=== PATIENT | female | born 1950 | race Caucasian/White ===

== ENCOUNTER → 2019-03-08 | Outpatient (CLI) | payer BC, MEDICARE ==
[~2019-03-08] MED LIST: LIDOCAINE HCL 2% JELLY 5 ML ONE; LIDOCAINE/PRILOCAINE CREAM 5GM TUBE TP ONE
[2019-03-08 12:54] VITALS: BP 149/73
== END | disposition home or self-care (01) ==
LOC: WHH 10:30
PROVIDERS: ATTEND Family Medicine
DX: I83.023 Varicose veins of left lower extremity with ulcer of ankle (principal); E78.5 Hyperlipidemia, unspecified; L40.0 Psoriasis vulgaris; K21.9 Gastro-esophageal reflux disease without esophagitis; G58.8 Other specified mononeuropathies; Z87.891 Personal history of nicotine dependence; Z85.3 Personal history of malignant neoplasm of breast
CPT/HCPCS: 11042; A6022; A6196; J3490; 97597

== ENCOUNTER → 2019-03-22 | Outpatient (CLI) | payer MEDICARE ==
[~2019-03-22] MED LIST changes: -LIDOCAINE HCL 2% JELLY 5 ML ONE
[2019-03-22 11:25] VITALS: BP 136/80
== END | disposition home or self-care (01) ==
LOC: WHH 09:05
PROVIDERS: ATTEND Family Medicine
DX: I83.023 Varicose veins of left lower extremity with ulcer of ankle (principal); L97.321 Non-pressure chronic ulcer of left ankle limited to breakdown of skin; E78.5 Hyperlipidemia, unspecified; L40.0 Psoriasis vulgaris; K21.9 Gastro-esophageal reflux disease without esophagitis; G58.8 Other specified mononeuropathies; Z87.891 Personal history of nicotine dependence; Z85.3 Personal history of malignant neoplasm of breast
CPT/HCPCS: A6212; G0463; J3490

== ENCOUNTER → 2019-04-05 | Outpatient (CLI) | payer MEDICARE ==
[2019-04-05 11:30] VITALS: BP 178/86
== END | disposition home or self-care (01) ==
LOC: WHH 10:15
PROVIDERS: ATTEND Emergency Medicine
DX: I83.023 Varicose veins of left lower extremity with ulcer of ankle (principal); I70.243 Atherosclerosis of native arteries of left leg with ulceration of ankle; L97.321 Non-pressure chronic ulcer of left ankle limited to breakdown of skin; E78.5 Hyperlipidemia, unspecified; L40.0 Psoriasis vulgaris; K21.9 Gastro-esophageal reflux disease without esophagitis; G58.8 Other specified mononeuropathies; Z87.891 Personal history of nicotine dependence; Z85.3 Personal history of malignant neoplasm of breast
CPT/HCPCS: A6196; G0463

== ENCOUNTER → 2019-04-13 | Outpatient (CLI) | payer MEDICARE ==
[2019-04-13 13:10] VITALS: BP 161/78
== END | disposition home or self-care (01) ==
LOC: WHH 11:00
PROVIDERS: ATTEND Emergency Medicine
DX: I83.023 Varicose veins of left lower extremity with ulcer of ankle (principal); I70.243 Atherosclerosis of native arteries of left leg with ulceration of ankle; L97.321 Non-pressure chronic ulcer of left ankle limited to breakdown of skin; E78.5 Hyperlipidemia, unspecified; L40.0 Psoriasis vulgaris; K21.9 Gastro-esophageal reflux disease without esophagitis; G58.8 Other specified mononeuropathies; Z87.891 Personal history of nicotine dependence; Z85.3 Personal history of malignant neoplasm of breast
CPT/HCPCS: A6212; G0463; J3490

== ENCOUNTER → 2019-04-19 | Outpatient (CLI) | payer MEDICARE ==
[2019-04-19 14:21] VITALS: BP 175/86
== END | disposition home or self-care (01) ==
LOC: WHH 11:00
PROVIDERS: ATTEND Family Medicine
DX: I83.023 Varicose veins of left lower extremity with ulcer of ankle (principal); I70.243 Atherosclerosis of native arteries of left leg with ulceration of ankle; L97.321 Non-pressure chronic ulcer of left ankle limited to breakdown of skin; E78.5 Hyperlipidemia, unspecified; L40.0 Psoriasis vulgaris; K21.9 Gastro-esophageal reflux disease without esophagitis; G58.8 Other specified mononeuropathies; Z87.891 Personal history of nicotine dependence; Z85.3 Personal history of malignant neoplasm of breast
CPT/HCPCS: G0463

== ENCOUNTER → 2019-06-04 | Outpatient (CLI) | payer MEDICARE, OTHER ==
[2019-06-04 14:28] VITALS: BP 178/76
== END | disposition home or self-care (01) ==
LOC: WHH 09:45
PROVIDERS: ATTEND Family Medicine
DX: L30.9 Dermatitis, unspecified (principal); I83.92 Asymptomatic varicose veins of left lower extremity; E78.5 Hyperlipidemia, unspecified; K21.9 Gastro-esophageal reflux disease without esophagitis; G58.8 Other specified mononeuropathies; L40.0 Psoriasis vulgaris; Z87.891 Personal history of nicotine dependence; Z85.3 Personal history of malignant neoplasm of breast
CPT/HCPCS: G0463; J3490

== ENCOUNTER → 2019-06-14 | Outpatient (CLI) | payer MEDICARE, OTHER ==
[2019-06-14 12:05] VITALS: BP 135/85
== END | disposition home or self-care (01) ==
LOC: WHH 10:25
PROVIDERS: ATTEND Family Medicine
DX: L30.9 Dermatitis, unspecified (principal); I83.92 Asymptomatic varicose veins of left lower extremity; K21.9 Gastro-esophageal reflux disease without esophagitis; E78.5 Hyperlipidemia, unspecified; L40.0 Psoriasis vulgaris; G58.8 Other specified mononeuropathies; Z85.3 Personal history of malignant neoplasm of breast; Z87.891 Personal history of nicotine dependence
CPT/HCPCS: G0463

== ENCOUNTER → 2019-06-25 | Outpatient (CLI) | payer MEDICARE, OTHER ==
[2019-06-25 13:30] VITALS: BP 170/54
== END | disposition home or self-care (01) ==
LOC: WHH 10:20
PROVIDERS: ATTEND Family Medicine
DX: L30.9 Dermatitis, unspecified (principal); I83.92 Asymptomatic varicose veins of left lower extremity; K21.9 Gastro-esophageal reflux disease without esophagitis; E78.5 Hyperlipidemia, unspecified; L40.0 Psoriasis vulgaris; G58.8 Other specified mononeuropathies; Z85.3 Personal history of malignant neoplasm of breast; Z87.891 Personal history of nicotine dependence
CPT/HCPCS: G0463

== ENCOUNTER → 2019-07-09 | Outpatient (CLI) | payer MEDICARE, OTHER ==
[~2019-07-09] MED LIST changes: +LIDOCAINE HCL 2% JELLY 5 ML ONE; -LIDOCAINE/PRILOCAINE CREAM 5GM TUBE TP ONE
[2019-07-09 12:06] VITALS: BP 183/91
== END | disposition home or self-care (01) ==
LOC: WHH 10:30
PROVIDERS: ATTEND Family Medicine
DX: L97.821 Non-pressure chronic ulcer of other part of left lower leg limited to breakdown of skin (principal); L30.9 Dermatitis, unspecified; I83.92 Asymptomatic varicose veins of left lower extremity; I73.9 Peripheral vascular disease, unspecified; K21.9 Gastro-esophageal reflux disease without esophagitis; E78.5 Hyperlipidemia, unspecified; G58.8 Other specified mononeuropathies; Z85.3 Personal history of malignant neoplasm of breast; Z87.891 Personal history of nicotine dependence
CPT/HCPCS: 97597; A6197

== ENCOUNTER → 2019-07-19 | Outpatient (CLI) | payer MEDICARE, OTHER ==
[~2019-07-19] MED LIST changes: -LIDOCAINE HCL 2% JELLY 5 ML ONE; +LIDOCAINE/PRILOCAINE CREAM 5GM TUBE TP ONE
[2019-07-19 14:31] VITALS: BP 172/82
== END | disposition home or self-care (01) ==
LOC: WHH 10:50
PROVIDERS: ATTEND Family Medicine
DX: I83.023 Varicose veins of left lower extremity with ulcer of ankle (principal); L97.321 Non-pressure chronic ulcer of left ankle limited to breakdown of skin; E78.5 Hyperlipidemia, unspecified; I87.2 Venous insufficiency (chronic) (peripheral); I73.9 Peripheral vascular disease, unspecified; K21.9 Gastro-esophageal reflux disease without esophagitis; L40.0 Psoriasis vulgaris; Z85.3 Personal history of malignant neoplasm of breast; Z87.891 Personal history of nicotine dependence
CPT/HCPCS: A6196; G0463; J3490

== ENCOUNTER → 2019-08-13 | Outpatient (CLI) | payer MEDICARE, OTHER ==
[2019-08-13 12:47] VITALS: BP 169/97
== END | disposition home or self-care (01) ==
LOC: WHH 10:00
PROVIDERS: ATTEND Family Medicine
DX: I83.023 Varicose veins of left lower extremity with ulcer of ankle (principal); L97.321 Non-pressure chronic ulcer of left ankle limited to breakdown of skin; L30.9 Dermatitis, unspecified; I73.9 Peripheral vascular disease, unspecified; I87.2 Venous insufficiency (chronic) (peripheral); L40.0 Psoriasis vulgaris; K21.9 Gastro-esophageal reflux disease without esophagitis; E78.5 Hyperlipidemia, unspecified; G58.8 Other specified mononeuropathies; Z87.891 Personal history of nicotine dependence; Z85.3 Personal history of malignant neoplasm of breast
CPT/HCPCS: A6197; G0463

== ENCOUNTER → 2019-08-27 | Outpatient (CLI) | payer MEDICARE, OTHER ==
[2019-08-27 12:55] VITALS: BP 176/82
== END | disposition home or self-care (01) ==
LOC: WHH 09:30
PROVIDERS: ATTEND Family Medicine
DX: I83.023 Varicose veins of left lower extremity with ulcer of ankle (principal); L97.321 Non-pressure chronic ulcer of left ankle limited to breakdown of skin; L30.9 Dermatitis, unspecified; L40.0 Psoriasis vulgaris; K21.9 Gastro-esophageal reflux disease without esophagitis; I87.2 Venous insufficiency (chronic) (peripheral); I73.9 Peripheral vascular disease, unspecified; E78.5 Hyperlipidemia, unspecified; G58.8 Other specified mononeuropathies; Z85.3 Personal history of malignant neoplasm of breast; Z87.891 Personal history of nicotine dependence
CPT/HCPCS: A6197; G0463

== ENCOUNTER 2019-09-17 10:00 | Outpatient (CLI) | payer MEDICARE, OTHER ==
[2019-09-17 14:03] VITALS: BP 121/64
== END 2019-09-17 14:24 ==
LOC: WHH 10:00
PROVIDERS: ATTEND Family Medicine
DX: I83.023 Varicose veins of left lower extremity with ulcer of ankle (principal); L97.321 Non-pressure chronic ulcer of left ankle limited to breakdown of skin; L30.9 Dermatitis, unspecified; I73.9 Peripheral vascular disease, unspecified; I87.2 Venous insufficiency (chronic) (peripheral); K21.9 Gastro-esophageal reflux disease without esophagitis; E78.5 Hyperlipidemia, unspecified; G58.8 Other specified mononeuropathies; L40.0 Psoriasis vulgaris; Z85.3 Personal history of malignant neoplasm of breast; Z87.891 Personal history of nicotine dependence
CPT/HCPCS: A6197 ×2; G0463

== ENCOUNTER → 2023-03-29 | Outpatient (CLI) | payer OTHER | END | disposition home or self-care (01) | LOC: SHCH 11:12 | PROVIDERS: ATTEND Internal Medicine Cardiovascular Disease | DX: I87.2 Venous insufficiency (chronic) (peripheral) (principal); Z95.820 Peripheral vascular angioplasty status with implants and grafts | CPT/HCPCS: 93970 ==

== ENCOUNTER → 2023-06-05 | Outpatient (CLI) | payer OTHER | END | disposition home or self-care (01) | LOC: SHCH 08:48 | PROVIDERS: ATTEND Internal Medicine | DX: R06.02 Shortness of breath (principal); I10 Essential (primary) hypertension; E78.5 Hyperlipidemia, unspecified | CPT/HCPCS: 93306 ==

== ENCOUNTER → 2023-07-08 | Outpatient (CLI) | payer OTHER ==
[2023-07-08] MEDS: REGADENOSON 0.4 MG/5 ML PF SYG IVP ONE (16:20)
== END | disposition home or self-care (01) ==
LOC: SHCH 09:03
PROVIDERS: ATTEND Internal Medicine
DX: I45.10 Unspecified right bundle-branch block (principal); R07.9 Chest pain, unspecified
CPT/HCPCS: 78452; 96374; 93017; J2785; A9500 ×2

== ENCOUNTER → 2024-03-25 | Outpatient (CLI) | payer OTHER ==
[~2024-03-25] MED LIST changes: +DIATR MEGLU/DIATRIZOATE SODIUM 30 ML BOTTLE ONE; -LIDOCAINE/PRILOCAINE CREAM 5GM TUBE TP ONE
--- NOTE | 2024-03-25 14:40 | HMCIMG ---
CT ABDOMEN/PELVIS W/O CONTRAST REASON: PARTIAL INTESTINAL OBSTRUCTION COMPARISON: None. TECHNIQUE: Images are obtained from lung bases to symphysis. There is some residual barium present within the colon. FINDINGS: Lung bases are clear. There are no focal liver lesions. There are normal-appearing kidneys.. Spleen and pancreas appear unremarkable. There are multiple stones in an otherwise normal-appearing gallbladder. Contrast outlines normal appearance of the colon. There is a redundant sigmoid colon, a normal variation. Probable ileum appears unremarkable. The appendix was not separately identified. Small bowel loops appear unremarkable.. This includes normal appearance of the appendix There is no evidence of free fluid or intraperitoneal air. There are no focal fluid collections. There are mild atherosclerotic changes in the aorta without evidence of aneurysm or stenosis. There is no retroperitoneal or pelvic lymphadenopathy. Pelvic soft tissues appear unremarkable.. The anterior abdominal wall is intact. Osseous structures appear unremarkable. IMPRESSION: 1. Redundant sigmoid colon, a normal variation, the colon appears otherwise unremarkable without evidence of mass or obstruction 2. Mild atherosclerotic change in the aorta. 3. Cholelithiasis without evidence of acute cholecystitis. CT was performed with one or more following dose reduction techniques: automated exposure control, adjustment of the mA and kv according to patient's size, or use of a iterative reconstruction technique.
== END | disposition home or self-care (01) ==
LOC: RAH 12:47
PROVIDERS: ATTEND Surgery
DX: K80.20 Calculus of gallbladder without cholecystitis without obstruction (principal); K56.600 Partial intestinal obstruction, unspecified as to cause; I70.0 Atherosclerosis of aorta; Q43.8 Other specified congenital malformations of intestine
CPT/HCPCS: 74176; Q9963

== ENCOUNTER 2024-07-15 06:17 | Day surgery (SDC) | payer OTHER ==
--- NOTE | 2024-07-13 15:35 | EKG ---
[facility] Test Date: 2024-07-13 Test Time: 16:33:51 Pat Name: MARS ESTEBAN Department: [facility] Room: Gender: F Director Of Elementary Education: [id number] : 1950 Requested By: TANIKA PETIT Order Number: [id number] Reading MD: Ambrosio Bethea Measurements Intervals [place] Rate: 68 P: 54 VT: 214 QRS: 37 QRSD: 150 T: 45 QT: 440 QTc: 467 Interpretive Statements Sinus rhythm with 1st degree AV block Right bundle branch block No previous ECG available for comparison Electronically Signed On 07-14-2024 12:49:34 VICE PRESIDENT INVESTOR RELATIONS by Ambrosio Bethea Please click the below link to view image of tracing.
[2024-07-13 15:44] VITALS: BP 151/64; PULSE 72; RESP 16; TEMP 96.9
[2024-07-13 15:45] LABS: BASOPHILS # (AUTO) 0.05 K/uL (0.00-0.20); BASOPHILS % (AUTO) 0.8 % (0.0-5.0); EOSINOPHILS # (AUTO) 0.24 K/uL (0.00-0.70); EOSINOPHILS % (AUTO) 3.6 % (0.0-8.0); HEMATOCRIT 37.7 % (36-48); IMMATURE GRANULOCYTE ABSOLUTE 0.02 K/uL (0-1); LYMPHOCYTES # (AUTO) 2.6 K/uL (1.0-4.8); LYMPHOCYTES % (AUTO) 38.6 % (21.0-51.0); MEAN CORPUSCULAR HGB CONC 32.9 g/dL (32.0-36.0); MEAN CORPUSCULAR VOLUME 88.3 fL (79-99); MONOCYTES # (AUTO) 0.6 K/uL (0.1-1.0); MONOCYTES % (AUTO) 9.6 % (3.0-13.0); NEUTROPHILS # (AUTO) 3.1 K/uL (1.8-7.7); NEUTROPHILS % (AUTO) 47.1 % (40.0-77.0); PLATELET COUNT (AUTO) 273 K/uL (130-400); RED BLOOD CELL COUNT(AUTO) 4.27 MIL/uL (4.00-5.50); RED CELL DISTRIBUTION WIDTH 12.4 % (11.0-15.5); WHITE BLOOD COUNT (AUTO) 6.6 K/uL (4.8-10.8)
[2024-07-13 15:56] LABS: CREATININE 0.7 mg/dL (0.5-1.0); POTASSIUM 4.4 mmol/L (3.5-5.1)
[~2024-07-15] VITALS: Ht 175.3 cm; Wt 85.5 kg
[2024-07-15] VITALS (14 sets, daily range): BP systolic 111–138; BP diastolic 41–69; PULSE 72–88; RESP 13–18; TEMP 97.1–98.2
[~2024-07-15 06:17] MED LIST changes: +AEC81 PO; +AMLO-258 PO; -DIATR MEGLU/DIATRIZOATE SODIUM 30 ML BOTTLE ONE; +DONE10TA43 PO; +EZET10TA48 PO; +LEVO5TAB13 PO; +LOSA100T59 PO; +PREG50CA64 PO; +ceFAZolin SODIUM 2 GM VIAL ONE
[2024-07-15] MEDS: LACTATED RINGERS 1000ML 1,000 ML IV ONE (06:30)
[2024-07-15] MEDS ORDERED: acetaMINOPHEN 100 ML ONE (06:56)
[2024-07-15] MEDS ORDERED: FAMOTIDINE 20MG VIAL IV ONE (06:57)
[2024-07-15] MEDS ORDERED: ketaMINE 50MG/ML SYRINGE 50 MG/ML DISP.SYRIN ONE (07:03)
[2024-07-15] MEDS ORDERED: FENTanyl CITRate PF 50 MCG/1 ML 2ML VIAL ONE (07:08)
[2024-07-15] MEDS ORDERED: rocuRONium bROMide 10MG/1ML 5ML VL ONE ×2 (07:08→09:16)
[2024-07-15] MEDS ORDERED: proPOFol 10 MG/ML 20ML VIAL IV ONE (07:08)
[2024-07-15] MEDS ORDERED: LIDOCAINE PF 100MG/5ML (2%) SYRINGE 5ML ONE (07:08)
[2024-07-15] MEDS ORDERED: BUPIvacaine/PF 0.25% 30ML VIAL IJ ONE (07:10)
[2024-07-15] MEDS ORDERED: INDOCYANINE GREEN 25 MG VIAL IJ ONE (07:34)
[2024-07-15] MEDS: ceFAZolin SODIUM 2 GM VIAL IVPB ONE (08:39)
[2024-07-15] MEDS ORDERED: dexaMETHasone SOD PHOSPHATE 10MG/ML 1ML VIAL ONE (08:40)
[2024-07-15] MEDS ORDERED: ondanSETRON 4MG INJ ONE (08:41)
[2024-07-15] MEDS ORDERED: GLYCOPYRROLATE 0.2 MG/ML 5 ML VIAL ONE (08:46)
[2024-07-15] MEDS ORDERED: NEOSTIGMINE METHYLSULFATE 1MG/ML IV ONE (08:46)
[2024-07-15] MEDS: BUPIvacaine/PF 0.25% 30ML VIAL IJ ONE (08:50)
--- NOTE | 2024-07-15 10:00 | OP ---
Operative Note: DATE OF PROCEDURE: 07/15/24 SURGEON: TANIKA PETIT MD AWNING HANGER HELPER: Tom Petit MD p.a. C ANESTHESIA: General and local ANESTHESIOLOGIST/COAT OPERATOR INSULATOR: [facility] anesthesia team PREOPERATIVE DIAGNOSIS: Symptomatic cholelithiasis POSTOPERATIVE DIAGNOSIS: As above SYNOPSIS: Cholecystectomy performed without incident PROCEDURE: 1. Robotic assisted cholecystectomy with IC green cholangiogram ESTIMATED BLOOD LOSS: Minimal, less than 30 cc INDICATIONS: As above DESCRIPTION OF PROCEDURE: After standard precautions and preparations were undertaken a Veress needle and optical trocar were used to enter the abdominal cavity. All other instruments were placed under direct vision. The robotic system was docked in the standard fashion. Patient's gallbladder was enlarged and had signs of chronic inflammation that included peritoneal and fatty attachments to surrounding structures. These attachments were dissected free using monopolar cautery and blunt dissection. The gallbladder was retracted cephalad. We began dissecting in the area of the infundibulum but found this difficult due to the size and orientation of the gallbladder. A partial dome down approach was then taken to free up and mobilize the gallbladder. Once this was completed sufficiently we are able to continue to retract the gallbladder cephalad and continue our work around the infundibulum. We identified a critical view of safety with a single duct and a single artery. The visualization of the ductal system was enhanced by the IC green cholangiogram. Utilizing firefly visual technology with the robotic system and IC green injection into the patient we are able to eliminate the entire ductal system with no signs of filling defects from the cystic duct to the common bile and common hepatic ducts. Clips were placed on both structures two on the staying side one on the going side. Both cystic duct and cystic artery were divided. Monopolar cautery was used to separate the remainder of attachments between the gallbladder and gallbladder fossa. The specimen was placed in an Endo-Catch bag and removed from the abdominal cavity. At the end of the case the clips were verified to still be in place. There was no sign of any bile leakage or bleeding. The fascia at the extraction site was closed to prevent future hernia. TANIKA PETIT MD Jul 15, 2024 10:00
--- NOTE | 2024-07-15 10:00 | PN ---
GENERAL SURGERY PROGRESS NOTE Date/Time Patient Seen: [07/15/2024 at 10:15 a.m. ] Problem List: [ ] Interval History: [Postop day 0. Pain tolerable with the p.r.n. medication. ] Physical Examination: ABD: [Incision is clean, dry and intact, Dermabond in place Vital Signs (last 8hr) Date Time Temp Pulse Resp B/P (MAP) Pulse Ox O2 Delivery O2 Flow Rate FiO2 07/15/24 06:40 97.2 72 18 132/69 97 Room Air 21 Laboratory: [ ] Hematology Labs: Test 07/13/24 15:27 Range/Units White Blood Count 6.6 4.8-10.8 K/uL Red Blood Count 4.27 4.00-5.50 MIL/uL Hemoglobin 12.4 12.0-16.0 g/dL Hematocrit 37.7 36-48 % Mean Corpuscular Volume 88.3 79-99 fL Mean Corpuscular Hemoglobin 29.0 27.0-33.0 pg Mean Corpuscular Hemoglobin Concent 32.9 32.0-36.0 g/dL Red Cell Distribution Width 12.4 11.0-15.5 % Platelet Count 273 130-400 K/uL Mean Platelet Volume 8.7 7.5-10.5 fL Immature Granulocyte % (Auto) 0.3 0-1 % Neutrophils (%) (Auto) 47.1 40.0-77.0 % Lymphocytes (%) (Auto) 38.6 21.0-51.0 % Monocytes (%) (Auto) 9.6 3.0-13.0 % Eosinophils (%) (Auto) 3.6 0.0-8.0 % Basophils (%) (Auto) 0.8 0.0-5.0 % Neutrophils # (Auto) 3.1 1.8-7.7 K/uL Lymphocytes # (Auto) 2.6 1.0-4.8 K/uL Monocytes # (Auto) 0.6 0.1-1.0 K/uL Eosinophils # (Auto) 0.24 0.00-0.70 K/uL Basophils # (Auto) 0.05 0.00-0.20 K/uL Absolute Immature Granulocyte (auto 0.02 0-1 K/uL Nucleated Red Blood Cells 0.0 0.0-0.19 % Chemistry Labs: Test 07/13/24 15:27 Range/Units Sodium Level 139 136-145 mmol/L Potassium Level 4.4 3.5-5.1 mmol/L Chloride Level 103 101-111 mmol/L Carbon Dioxide Level 30 21-32 mmol/L Blood Urea Nitrogen 19 H 7-18 mg/dL Creatinine 0.7 0.5-1.0 mg/dL Glomerular Filtration Rate Calc 91 >90 mL/min Random Glucose 92 70-105 mg/dL Total Calcium 10.3 H 8.5-10.1 mg/dL Diagnostics / Radiology: [Copy/Paste Echos/Imaging Report here] Impression and Plan: [ Plan is for discharge home later today, as long as patient tolerating p.o. and pain under control. Discussed this with the patient and family. They understand and agree.] TANIKA PETIT MD Jul 15, 2024 10:00
[2024-07-15] MEDS: MEPERIDINE-PF 100 MG/ML SYG ONE (10:14)
--- NOTE | 2024-07-15 11:21 | NUR ---
Full and complete discharge instructions given to Patient and Family both verbally and in writing. Explained Surgical procedure precautions and follow up. Dermabond sites all clean and dry. All questions answered. PIV removed with catheter tip intact. Home with Family W/C to POV.
== END 2024-07-15 11:35 | disposition home or self-care (01) ==
LOC: DAH 06:17
PROVIDERS: ATTEND Surgery
DX: K80.10 Calculus of gallbladder with chronic cholecystitis without obstruction (principal); K76.0 Fatty (change of) liver, not elsewhere classified; I10 Essential (primary) hypertension; I45.10 Unspecified right bundle-branch block; R16.0 Hepatomegaly, not elsewhere classified; I44.0 Atrioventricular block, first degree; E78.00 Pure hypercholesterolemia, unspecified; Z85.3 Personal history of malignant neoplasm of breast; Z90.710 Acquired absence of both cervix and uterus; Z90.89 Acquired absence of other organs; Z98.42 Cataract extraction status, left eye; Z98.41 Cataract extraction status, right eye; Z88.8 Allergy status to other drugs, medicaments and biological substances; Z88.5 Allergy status to narcotic agent; Z79.82 Long term (current) use of aspirin; Z79.899 Other long term (current) drug therapy
CPT/HCPCS: 80048; 85025; 86850; 86900; 86901; 36415; 93005; 47379; 47563; 88313; 88304; 88307; A6260; A4663; A4215 ×2; A4213; A4222; A4221; A4216; J7030; J7120; J3490 ×5; J3010; J1100; J0665 ×2; J2003; J2704; J2405; J2710; J2175; J0690 ×2; A4649 ×2; A4930; A4223 ×2; A4600

== ENCOUNTER 2025-04-14 09:40 | Observation (INO) | payer OTHER ==
[~2025-04-14] VITALS: Ht 172.7 cm; Wt 80.8 kg
--- NOTE | 2025-04-14 10:12 | EKG ---
[facility] Test Date: 2025-04-14 Test Time: 09:43:27 Pat Name: MARS ESTEBAN Department: ED Room: 224 Gender: F Radiology Receptionist: [id number] : 1950 Requested By: JANINA GUTIERREZ Order Number: [id number] Reading MD: Latricia Bui Measurements Intervals [place] Rate: 65 P: 63 HI: 234 QRS: 40 QRSD: 163 T: 37 QT: 429 QTc: 446 Interpretive Statements Sinus rhythm Prolonged HI interval Right bundle branch block Compared to ECG 07/13/2024 16:33:51 No significant changes Electronically Signed On 04-14-2025 21:15:15 DISCHARGING MACHINE OPERATOR by Latricia Bui Please click the below link to view image of tracing.
[2025-04-14 10:19] LABS: IMMATURE GRANULOCYTE ABSOLUTE 0.04 K/uL (0-1); NUCLEATED RED BLOOD CELLS 0.0 % (0.0-0.19); PLATELET COUNT (AUTO) 265 K/uL (130-400); RED BLOOD CELL COUNT(AUTO) 4.09 MIL/uL (4.00-5.50); RED CELL DISTRIBUTION WIDTH 12.3 % (11.0-15.5); WHITE BLOOD COUNT (AUTO) 10.1 K/uL (4.8-10.8)
[2025-04-14 10:31] LABS: ASPARTATE AMINOTRANSFERASE 21.0 U/L (10-37); CREATININE 0.9 mg/dL (0.5-1.0); GLOMERULAR FILTR. RATE CALC 67.0 mL/min (>90); GLUCOSE,RANDOM 116.0 mg/dL (70-105); SODIUM SERUM 139.0 mmol/L (136-145); TOTAL PROTEIN, SERUM 8.0 g/dL (6.0-8.3); UREA NITROGEN, BLOOD 29.0 mg/dL (7-18)
[2025-04-14] MEDS: ASPIRIN 325MG TAB PO STA (10:48)
[2025-04-14] MEDS: NITROGLYCERIN 1GM OINT 1 INCH/1GM TD STA (10:48)
--- NOTE | 2025-04-14 11:07 | HMCIMG ---
EXAM: CR Chest, 1 View. CLINICAL HISTORY: cp COMPARISON: None provided. FINDINGS: LUNGS: The lungs show no infiltrate or other acute finding. PLEURAL SPACES: No evidence of pleural effusion or pneumothorax. MEDIASTINUM: The cardiomediastinal silhouette is within normal limits. BONES: No aggressive appearing osseous lesion seen. IMPRESSION: No acute cardiopulmonary pathology is evident. /[place]
--- NOTE | 2025-04-14 11:30 | ERN ---
ED Note History of Present Illness Stated Complaint: CHEST PAIN Chief Complaint: Chest Pain Time Seen by MD: 09:44 Dictation: 74-year-old female presenting to the emergency department with chest pain on and off worse this morning 02/18. No shortness a breath patient has a history of peripheral artery disease and stent x1 with Dr. Jacobson. Allergies: Coded Allergies: Sulfa (Sulfonamide Antibiotics) (Unverified Allergy, Unknown, RASH, 05/13/24) codeine (Unverified Allergy, Unknown, 04/20/24) CONSTIPATION nitrofurantoin (Unverified Allergy, Unknown, HIVES, 05/13/24) Home Meds Reported Medications Aspirin (ASPIRIN 81 MG ECTAB) 81 Mg Ectab, 81 MG PO HS, TAB.EC 07/13/24 Pregabalin (Pregabalin) 50 Mg Capsule, 50 MG PO TID, CAP 05/13/24 Levocetirizine Dihydrochloride (Levocetirizine Dihydrochloride) 5 Mg Tablet, 5 MG PO HS, TAB 04/19/24 Losartan Potassium (Losartan Potassium) 100 Mg Tablet, 100 MG PO DAILY, TAB 04/19/24 Donepezil HCl (Donepezil HCl) 10 Mg Tablet, 10 MG PO DAILY, TAB 04/19/24 Ezetimibe (Ezetimibe) 10 Mg Tablet, 10 MG PO HS, TAB 04/19/24 Amlodipine Besylate (Amlodipine Besylate) 10 Mg Tablet, 10 MG PO HS for 30 Days, #30 TAB 0 Refills 04/19/24 Past Medical History Past Medical History: High Cholesterol, Hypertension Surgical History: Other Surgical History Other: MAJOR COLON SURGERY [address] QUEEN Review of System Dictation Constitutional: Negative for fever,chills, and weight loss Eyes: Negative for injury, pain,redness, and discharge ENT: Negative for injury,pain or swelling Cardiovascular: Per HPI Respiratory: Negative for shortness of breath, cough, and wheezing, Abdomen/GI: Negative for abdominal pain, nausea, vomiting, diarrhea, and constipation Back: Negative for injury and pain : Negative for injury, bleeding and discharge MS/Extremity: Negative for injury and deformity Skin: Negative for rash, and discoloration Neuro: Negative for headache, weakness, numbness, tingling, and seizure Psych: Negative for suicide ideation, homicidal ideation, and hallucinations Initial Vital Sign VS Vital Signs Date Time Temp Pulse Resp B/P (MAP) Pulse Ox O2 Delivery O2 Flow Rate FiO2 04/14/25 09:44 98.2 68 20 143/62 99 Room Air 04/14/25 09:55 0 21 Physical Exam Dictation General: awake, alert, appears uncomfortable Head/Face: Normocephalic, atraumatic Eyes: PERRL, EOMI, vision at baseline ENT: oral cavity clear, TMs clear, no signs of infection Neck: Trachea midline, supple, no nuchal rigidity Cardiovascular: RRR, normal S1/S2, No MRGs, no JVD Respiratory: CTAB, no respiratory distress, No rales or wheezes Abdomen: Soft, non-tender, non-distended, normal bowel sounds, no guarding or rebound. Skin: Warm, dry, normal turgor, no rash MS/Extremity: Pulses equal, no cyanosis, neurovascular intact, FROM Neuro: COAx4, GCS 15, strength 5/5, CN 2-12 intact, normal cerebellar exam, normal gait, Psych: Normal behavior, mood, and affect normal Results (Laboratory/Radiology) Laboratory/Radiology Laboratory Tests Test 04/14/25 09:51 White Blood Count 10.1 K/uL (4.8-10.8) Red Blood Count 4.09 MIL/uL (4.00-5.50) Hemoglobin 12.0 g/dL (12.0-16.0) Hematocrit 36.9 % (36-48) Mean Corpuscular Volume 90.2 fL (79-99) Mean Corpuscular Hemoglobin 29.3 pg (27.0-33.0) Mean Corpuscular Hemoglobin Concent 32.5 g/dL (32.0-36.0) Red Cell Distribution Width 12.3 % (11.0-15.5) Platelet Count 265 K/uL (130-400) Mean Platelet Volume 9.0 fL (7.5-10.5) Immature Granulocyte % (Auto) 0.4 % (0-1) Neutrophils (%) (Auto) 67.5 % (40.0-77.0) Lymphocytes (%) (Auto) 19.9 % (21.0-51.0) L Monocytes (%) (Auto) 10.9 % (3.0-13.0) Eosinophils (%) (Auto) 1.0 % (0.0-8.0) Basophils (%) (Auto) 0.3 % (0.0-5.0) Neutrophils # (Auto) 6.8 K/uL (1.8-7.7) Lymphocytes # (Auto) 2.0 K/uL (1.0-4.8) Monocytes # (Auto) 1.1 K/uL (0.1-1.0) H Eosinophils # (Auto) 0.10 K/uL (0.00-0.70) Basophils # (Auto) 0.03 K/uL (0.00-0.20) Absolute Immature Granulocyte (auto 0.04 K/uL (0-1) Nucleated Red Blood Cells 0.0 % (0.0-0.19) Sodium Level 139 mmol/L (136-145) Potassium Level 4.0 mmol/L (3.5-5.1) Chloride Level 103 mmol/L (101-111) Carbon Dioxide Level 28 mmol/L (21-32) Blood Urea Nitrogen 29 mg/dL (7-18) H Creatinine 0.9 mg/dL (0.5-1.0) Glomerular Filtration Rate Calc 67 mL/min (>90) Random Glucose 116 mg/dL (70-105) H Total Calcium 10.4 mg/dL (8.5-10.1) H Total Bilirubin 0.7 mg/dL (0.2-1.0) Direct Bilirubin 0.1 mg/dL (0.0-0.3) Aspartate Amino Transf (AST/SGOT) 21 U/L (10-37) Alanine Aminotransferase (ALT/SGPT) 37 U/L (12-78) Alkaline Phosphatase 75 U/L (50-136) Troponin I High Sensitivity < 4 ng/L (4-50) L B-Type Natriuretic Peptide 100 pg/mL (0-100) Total Protein 8.0 g/dL (6.0-8.3) Albumin 4.3 g/dL (3.5-5.0) Labs Reviewed?: Yes EKG Comment: Heart rate 65 normal sinus rhythm, right bundle-branch block, no STEMI or STEMI equivalent ED Course ED Course Orders Procedure Category Date Status Time B-Type Natriuretic LAB 04/14/25 Complete Peptide 09:44 12 Lead Ekg Tracing- EKG 04/14/25 Complete Technical 09:44 Basic Metabolic Panel LAB 04/14/25 Complete 09:44 Cbc With Differential LAB 04/14/25 Complete 09:44 Hepatic Function Panel LAB 04/14/25 Complete 09:44 Troponin I High LAB 04/14/25 Complete Sensitivity 09:44 Chest 1vw RAD 04/14/25 Resulted 09:44 Fentanyl Citrate Pf PHA 04/14/25 Complete 0.05 Mg/Ml (Fentanyl 10:02 Nitroglycerin 1gm PHA 04/14/25 Complete Oint (Nitroglycerin 1g 10:02 Aspirin 325mg Tab PHA 04/14/25 Complete (Aspirin 325mg Tab) 10:03 Current Medications Medications (Trade) Dose Ordered Sig/Ambrose Route PRN Reason Start Time Stop Time Status Last Admin Dose Admin Aspirin (Aspirin 325mg Tab) 325 mg ONCE STAT PO 04/14/25 10:03 04/14/25 10:05 DC Fentanyl Citrate (FENTanyl CITRate PF 50 MCG/ 1 ML 2ML VIAL) 50 mcg ONCE STAT IVP 04/14/25 10:02 04/14/25 10:05 DC 04/14/25 10:48 Nitroglycerin (Nitroglycerin 1gm Oint) 0.5 inch ONCE STAT TD 04/14/25 10:02 04/14/25 10:05 DC Vital Signs Date Time Temp Pulse Resp B/P (MAP) Pulse Ox O2 Delivery O2 Flow Rate FiO2 04/14/25 10:43 98.1 64 15 95/50 97 Room Air* 0 21 04/14/25 09:55 98.2 66 20 126/51 97 Room Air* 0 21 04/14/25 09:44 98.2 68 20 143/62 99 Room Air Medical Decision Making MDM MDM: Differential diagnosis: Rationale: Tests considered and ordered secondary to shared decision making include: labs, ECG and radiology Previous outside records reviewed: Old ER visits. Risk of complication and/or morbidity or mortality of patient management: None Medications-Per medication reconciliation Need for hospitalization: Patient does meet criteria for hospitalization. Need for emergency major/minor surgery: No There are no social concerns with this patient. Prescription drug management Prescriptions will include symptomatic care Patient's prior external medical records from other ER visits were reviewed by me as indicated. Prior testing and results from previous visits were reviewed. Prior tests were taken into account with medical decision making and resource utilization, independent historian/historians were used to obtain complete medical history. I independently interpreted the test that were performed, results were reviewed by me and considered findings on radiology if ordered. Medical management and examination interpretation discussions were had by me with other qualified healthcare professionals as indicated for the patient's care. 74-year-old female with unstable angina initial EKG and troponin are negative however patient is still having chest pain no signs of dissection on chest x- ray, was given fentanyl and full-dose aspirin, nitro x3, hemodynamically stable due to ongoing pain consulted Cardiology so that they can see patient and ev aluate for intractable chest pain, admitting to hospitalist for further care and evaluation DX & DISP Disposition: Inpatient Departure Impression: Primary Impression: Unstable angina Condition: Stable Referrals: JUNITO KELLY (PCP) JANINA GUTIERREZ MD Apr 14, 2025 11:30
--- NOTE | 2025-04-14 11:50 | HP ---
[facility] PH[facility] Date of Service: Apr 14, 2025 Time of Service: 11:49 HISTORY OF PRESENT ILLNESS: 74-year-old female with past medical history of hypertension, history of hyperlipidemia, breast cancer, peripheral vascular disease, history of ischemic colitis who presented to the hospital secondary to chest pain. Patient states her pain has been present for the past two days. The pain is located in the midsternal area which radiates towards her neck. She describes the pain as pressure intensity. Her pain was 10/10 in intensity. She did notice the pain was also radiating towards his left arm. She denied any paresthesias associated with the pain. She did have one episode of subjective fever at home but denied any cough with phlegm production. Denied any abdominal pain, nausea, vomiting. Denied any changes in her bowel movement. She does have a history of hemicolectomy in the past. She denied any changes in her bowel movement. Denied any hematochezia, hematemesis. Denied any falls, syncopal episode. She does see Dr. Bedolla as outpatient. She denied any previous cardiac workup. She had also gets short of breath with chest pain. Labs in the ER were notable for white count of 10.1, hemoglobin was 12.0, platelet count was 265 K, sodium was 139, creatinine was 0.9, potassium was 4.0, troponin was negative x1 Chest x-ray did not show infiltrates. There might be a possible small left- sided effusion present. In the ER patient received nitro paste, fentanyl. REVIEW OF SYSTEMS CONSTITUTIONAL: Denies fevers, chills, or night sweats. No unintentional weight loss reported. NEUROLOGICAL: Denies headache, amaurosis fugax, motor weakness, sensory deficit, vertigo/spinning sensation, gait abnormalities, or tremors. ENT: No hearing loss, otalgia, otorrhea, rhinitis, rhinorrhea, hoarseness, or sore throat. CARDIOVASCULAR: Denies any exertional angina, dyspnea on exertion, orthopnea, paroxysmal nocturnal dyspnea, palpitations, life-threatening arrhythmias, claudication. PULMONARY: Denies any shortness of breath, cough, phlegm/sputum, hemoptysis, pleuritic chest pain. SLEEP: Denies morning headaches, daytime somnolence or napping. Denies difficulty falling asleep, staying asleep, waking from sleep. Denies knowledge of snoring. GASTROINTESTINAL: Denies any type of dysphagia to either liquids or solids. Denies nausea, vomiting, pyrosis, early satiety, abdominal pain, diarrhea, constipation, or changes in stool consistency or caliber. Denies coffee-ground emesis, hematemesis, hematochezia, or melanotic stools. GENITOURINARY: Denies frequency, urgency, nocturia, hematuria or incontinence (Storage/Irritative symptoms.) Low urinary stream, straining to void, urinary intermittency or hesitancy, splitting of the voiding stream, terminal dribbling. ENDOCRINOLOGIC: Denies polyuria, polydipsia, polyphagia or heat/cold intolerances. HEMATOLOGIC: Denies thrombophilia/previous clots, or coagulopathy/bleeding disorders. ONCOLOGIC: Denies personal history of malignancy. DERMATOLOGIC: Denies rashes or pruritus. PSYCHIATRIC: Denies any suicidal or homicidal ideation. Denies hallucinations. PAST MEDICAL HISTORY: Hypertension, hyperlipidemia, history of breast cancer, history of peripheral vascular disease, history of ischemic colitis PAST SURGICAL HISTORY: History of left hemicolectomy, hysterectomy, tonsillectomy, double mastectomy PAST SOCIAL HISTORY: Denied any smoking, alcohol, drug use FAMILY HISTORY: Denied any pertinent family history Coded Allergies: Sulfa (Sulfonamide Antibiotics) (Unverified Allergy, Unknown, RASH, 05/13/24) codeine (Unverified Allergy, Unknown, 04/20/24) CONSTIPATION nitrofurantoin (Unverified Allergy, Unknown, HIVES, 05/13/24) PHYSICAL EXAM GENERAL APPEARANCE: The patient is awake, alert, and oriented, in no acute cardiopulmonary distress. NEUROLOGICAL: Cranial nerves II-XII grossly intact. Motor is 5/5 in bilateral upper and lower extremities proximal to distal. No sensory deficits. HEENT: Face is symmetric. Pupils are equal and reactive. Extraocular movements are intact. NECK: Supple. No JVD. No thyromegaly. No submental, submandibular, pre- /postauricular, occipital or supraclavicular lymphadenopathy. CHEST: Normal chest expansion. No Telemetry. LUNGS: Absence of any rales, rhonchi or any wheezing. CARDIOVASCULAR: Regular. S1 and S2 normal. No appreciable rubs, murmurs or gallops. ABDOMEN: Soft, nontender, and nondistended. There is no rebound, voluntary guarding, or rigidity. : Deferred. No Ochoa. EXTREMITIES: Non-edematous and not cyanotic. No clubbing. Good capillary refi ll. SKIN: No skin breakdown. Vital Sign (Last 24 Hours) 04/14/25 10:43 Temp 98.1 Pulse 64 Resp 15 B/P (MAP) 95/50 Pulse Ox 97 O2 Delivery Room Air* O2 Flow Rate 0 FiO2 21 LABS: Laboratory: Test 04/14/25 09:51 Range/Units White Blood Count 10.1 4.8-10.8 K/uL Red Blood Count 4.09 4.00-5.50 MIL/uL Hemoglobin 12.0 12.0-16.0 g/dL Hematocrit 36.9 36-48 % Mean Corpuscular Volume 90.2 79-99 fL Mean Corpuscular Hemoglobin 29.3 27.0-33.0 pg Mean Corpuscular Hemoglobin Concent 32.5 32.0-36.0 g/dL Red Cell Distribution Width 12.3 11.0-15.5 % Platelet Count 265 130-400 K/uL Mean Platelet Volume 9.0 7.5-10.5 fL Immature Granulocyte % (Auto) 0.4 0-1 % Neutrophils (%) (Auto) 67.5 40.0-77.0 % Lymphocytes (%) (Auto) 19.9 L 21.0-51.0 % Monocytes (%) (Auto) 10.9 3.0-13.0 % Eosinophils (%) (Auto) 1.0 0.0-8.0 % Basophils (%) (Auto) 0.3 0.0-5.0 % Neutrophils # (Auto) 6.8 1.8-7.7 K/uL Lymphocytes # (Auto) 2.0 1.0-4.8 K/uL Monocytes # (Auto) 1.1 H 0.1-1.0 K/uL Eosinophils # (Auto) 0.10 0.00-0.70 K/uL Basophils # (Auto) 0.03 0.00-0.20 K/uL Absolute Immature Granulocyte (auto 0.04 0-1 K/uL Nucleated Red Blood Cells 0.0 0.0-0.19 % Sodium Level 139 136-145 mmol/L Potassium Level 4.0 3.5-5.1 mmol/L Chloride Level 103 101-111 mmol/L Carbon Dioxide Level 28 21-32 mmol/L Blood Urea Nitrogen 29 H 7-18 mg/dL Creatinine 0.9 0.5-1.0 mg/dL Glomerular Filtration Rate Calc 67 >90 mL/min Random Glucose 116 H 70-105 mg/dL Total Calcium 10.4 H 8.5-10.1 mg/dL Total Bilirubin 0.7 0.2-1.0 mg/dL Direct Bilirubin 0.1 0.0-0.3 mg/dL Aspartate Amino Transf (AST/SGOT) 21 10-37 U/L Alanine Aminotransferase (ALT/SGPT) 37 12-78 U/L Alkaline Phosphatase 75 50-136 U/L Troponin I High Sensitivity < 4 L 4-50 ng/L B-Type Natriuretic Peptide 100 0-100 pg/mL Total Protein 8.0 6.0-8.3 g/dL Albumin 4.3 3.5-5.0 g/dL Current Medications Medications (Trade) Dose Ordered Sig/Ambrose Route PRN Reason Start Time Stop Time Status Last Admin Dose Admin Acetaminophen (TYLenol 500MG TAB) 500 mg Q6H PRN PO MILD PAIN (1-3) 04/14/25 12:00 05/14/25 11:59 Aspirin (Aspirin 325mg Tab) 325 mg ONCE STAT PO 04/14/25 10:03 04/14/25 10:05 DC Aspirin (Aspirin 81mg Chew Tab) 81 mg DAILY PO 04/15/25 09:00 05/15/25 08:59 Famotidine (Pepcid 20mg Vial) 20 mg BID IV 04/14/25 21:00 05/14/25 20:59 Fentanyl Citrate (FENTanyl CITRate PF 50 MCG/ 1 ML 2ML VIAL) 50 mcg ONCE STAT IVP 04/14/25 10:02 04/14/25 10:05 DC 04/14/25 10:48 50 MCG Magnesium Sulfate 50 ml @ 0 mls/hr PROTOCOL PRN IV hypomagnesium 04/14/25 12:00 05/14/25 11:59 Morphine Sulfate (morPHINE 2MG SYG) 2 mg Q4H PRN IVP SEVERE PAIN (7-10) 04/14/25 12:00 04/21/25 11:59 UNV Nitroglycerin (Nitroglycerin 1gm Oint) 0.5 inch ONCE STAT TD 04/14/25 10:02 04/14/25 10:05 DC 04/14/25 11:40 0.5 INCH Potassium Chloride 100 ml @ 100 mls/hr AD PRN IV POTASSIUM PROTOCOL 04/14/25 12:00 05/14/25 11:59 Potassium Chloride (K-Dur/Klor-Con 20meq) 20 meq AD PRN PO POTASSIUM PROTOCOL 04/14/25 12:00 05/14/25 11:59 Potassium Chloride (KCl 10% Elixir 20meq/15ml) 20 meq AD PRN PO POTASSIUM PROTOCOL 04/14/25 12:00 05/14/25 11:59 DIAGNOSTICS / RADIOLOGY: Possible small left-sided effusion ASSESSMENT: Chest pain with concern for unstable angina POA Hypertension Hyperlipidemia History of peripheral vascular disease History of ischemic colitis status post hemicolectomy History of breast cancer History of mastectomy Mild hypertensive PLAN: - patient to be admitted to PCCU -in reference to chest pain. We will trend troponins q.6 hours to rule out ACS. Secondary to persistent pain we will request consultation with Cardiology. Start morphine for severe pain. c/w Aspirin daily. -obtain patient's home medications which will be reconciled once available -check TSH, hemoglobin A1c -obtain echocardiogram -further orders per hospitalization course. Advanced Care Planning Which of the following were discussed: Hospice care: Yes __ No _x_ Therapeutic options: Yes __ No __ Advance directives: Yes __ No __ Other discussions: Discussed with who?: patient (Patient, family or surrogates) Voluntary nature of this service was explained to the patient? Yes _x_ No __ Amount of time spent: 25 minutes TAMMI Bhatt MD, MD Apr 14, 2025 11:50
[2025-04-14] MEDS ORDERED: PoTASSium chloRIDE 20MEQ ER 20 MEQ ERTAB PO PRN (12:00)
[2025-04-14] MEDS ORDERED: MAGNESIUM 2GM PREMIX 50ML 50 ML IV PRN (12:00)
[2025-04-14] MEDS ORDERED: 0.9%NACL 1000ML 500 ML IV ONE (12:00)
[2025-04-14] MEDS ORDERED: PoTASSium chl 10% ELIXIR 20MEQ 20 MEQ/15 ML UDCUP PO PRN (12:00)
[2025-04-14 12:13] LABS: INR 1.0 (0.85-1.15)
--- NOTE | 2025-04-14 12:21 | NUR ---
HOME MEDS ENTERED
--- NOTE | 2025-04-14 13:28 | NUR ---
DCP:HOME Pt currently lives at home alone, her recently (September 2024). Pt denies having any DME, home health, or provider services. Pt states that she is able to complete ADLs independently. PCP is Eulalia Nuñez and uses [facility] for any RX needs. At DC pt will want to go home and family can assist with transportation.
[2025-04-14 15:55] VITALS: BP 140/65; PULSE 65; RESP 18; TEMP 97.6
--- NOTE | 2025-04-14 16:17 | CONS ---
[facility] CARDIOLOGY CONSULTATION NOTE Date Patient Seen: Apr 14, 2025 Time of Visit: 16:13 Reason for Consultation: chest pain History of Present Illness: Patient is a 73-year-old female with past medical history of hypertension, dyslipidemia, venous insufficiency, history of left common and external iliac vein stenting in 2019, ablation of an incompetent associate professor of communication vein of the [facility] in 2019 and a left due to venous stasis ulcer. Prior transthoracic echocardiogram in 2023 with normal left ventricular systolic function, normal diastology, no significant valvular abnormalities. She underwent pharmacologic stress testing in 2023 with Lexiscan which was negative for ischemia or infarction with a stress LVF of 60%. Patient presented to the hospital with chest pain, intermittent over the prior two days. Symptom began while she was at hair salon, after reclining back to get her hair washed, and has been persistent since then. She has reproducible chest pain on direct palpation to the anterior chest, right lateral neck, and right posterior thorax, with difficulty ROM at the trunk. High sensitivity troponin negative x2. BNP negative. EKG NSR with first degree AVB and RBBB. Past Medical History: Chronic venous insufficiency status post nonhealing left medial ankle venous ulcer in 2019, history of left common and external iliac vein stenting in September of 2019 of the [facility], history of sclerotherapy and successful laser ablation of an incompetent associate professor of communication vein 20 cm above the left medial malleolus at the [facility] in November of 2019, hypertension and dyslipidemia Past Surgical History: Vein procedures as described above Bilateral mastectomy in 2018 Partial hysterectomy in 1988 Resection of left axillary lymph nodes in October of 2018 Tonsillectomy in 1964 Bladder suspension in 2015 Oophorectomy 2013 Family History: Noncontributory Social History: Nonsmoker, no alcohol use, no recent hospitalizations, independent with ambulation Current Meds: Current Medications Medications Dose Ordered Sig/Ambrose Start Time Stop Time Status Last Admin Famotidine 20 mg BID 04/14/25 21:00 05/14/25 20:59 Acetaminophen 500 mg Q6H PRN 04/14/25 12:00 05/14/25 11:59 04/14/25 12:40 Morphine Sulfate 2 mg Q4H PRN 04/14/25 12:00 04/21/25 11:59 04/14/25 13:01 Potassium Chloride 100 ml @ 100 mls/hr AD PRN 04/14/25 12:00 05/14/25 11:59 Potassium Chloride 20 meq AD PRN 04/14/25 12:00 05/14/25 11:59 Potassium Chloride 20 meq AD PRN 04/14/25 12:00 05/14/25 11:59 Magnesium Sulfate 50 ml @ 0 mls/hr PROTOCOL PRN 04/14/25 12:00 05/14/25 11:59 Aspirin 81 mg DAILY 04/15/25 09:00 05/15/25 08:59 EZETIMIBE 10 mg HS 04/14/25 21:00 05/14/25 20:59 Montelukast Sodium 10 mg DAILY 04/15/25 09:00 05/15/25 08:59 Amlodipine Besylate 10 mg DAILY 04/15/25 09:00 05/15/25 08:59 Donepezil HCl 10 mg DAILY 04/15/25 09:00 05/15/25 08:59 Home Med (Fenofibrate 160 MG) DAILY 04/15/25 09:00 05/15/25 08:59 Fluoxetine HCl 20 mg DAILY 04/15/25 09:00 05/15/25 08:59 Fish Oil 1,000 mg DAILY 04/15/25 09:00 05/15/25 08:59 Pregabalin 50 mg TID 04/14/25 14:00 05/14/25 13:59 Review of Systems: CONST: [No fever, fatigue, or weight changes.] EYES: [No recent vision problems.] ENT: [No congestion, ear pain, or sore throat.] C/V: +chest pain, No palpitations, or edema.] RESP: [No cough, congestion, wheezing or shortness of breath.] GI: [No abdominal pain, nausea, vomiting, constipation, or diarrhea.] NEURO: [No headache, focal numbness or weakness, dizziness, or seizures.] HEME: [No abnormal bruising or bleeding.] Physical Examination: GENERAL: [No acute distress.] HEAD: [Normal with no signs of head trauma.] NECK: [ Normal carotid upstrokes without bruits.] LUNGS: [Clear breath sounds bilaterally. There are right basilar rales one third of the way up the chest. No wheezes, or rhonchi.] MSK: She has reproducible chest pain on direct palpation to the anterior chest, right lateral neck, and right posterior thorax, with difficulty ROM at the trunk. HEART: [Normal rate and rhythm. Normal S1 and S2 without murmurs, gallop or rub.] VASC: [Peripheral pulses +2 bilaterally.] ABD: [soft, nontender, no masses, no organomegaly. No audible bruits.] EXT: [No clubbing, cyanosis or edema.] SKIN: [No rashes or lesions noted.] NEURO: [Awake, alert, and oriented x3. No focal sensory or strength deficits noted.] Vital Signs (last 8hr) Date Time Temp Pulse Resp B/P (MAP) Pulse Ox O2 Delivery O2 Flow Rate FiO2 04/14/25 15:15 97.5 64 20 116/45 95 Room Air* 0 21 04/14/25 12:31 97.9 64 12 106/43 98 Nasal Cannula* 1 24 04/14/25 10:43 98.1 64 15 95/50 97 Room Air* 0 21 04/14/25 09:55 98.2 66 20 126/51 97 Room Air* 0 04/14/25 09:44 98.2 68 20 143/62 99 Room Air Laboratory: [ ] Hematology Labs: Test 04/14/25 09:51 Range/Units White Blood Count 10.1 4.8-10.8 K/uL Red Blood Count 4.09 4.00-5.50 MIL/uL Hemoglobin 12.0 12.0-16.0 g/dL Hematocrit 36.9 36-48 % Mean Corpuscular Volume 90.2 79-99 fL Mean Corpuscular Hemoglobin 29.3 27.0-33.0 pg Mean Corpuscular Hemoglobin Concent 32.5 32.0-36.0 g/dL Red Cell Distribution Width 12.3 11.0-15.5 % Platelet Count 265 130-400 K/uL Mean Platelet Volume 9.0 7.5-10.5 fL Immature Granulocyte % (Auto) 0.4 0-1 % Neutrophils (%) (Auto) 67.5 40.0-77.0 % Lymphocytes (%) (Auto) 19.9 L 21.0-51.0 % Monocytes (%) (Auto) 10.9 3.0-13.0 % Eosinophils (%) (Auto) 1.0 0.0-8.0 % Basophils (%) (Auto) 0.3 0.0-5.0 % Neutrophils # (Auto) 6.8 1.8-7.7 K/uL Lymphocytes # (Auto) 2.0 1.0-4.8 K/uL Monocytes # (Auto) 1.1 H 0.1-1.0 K/uL Eosinophils # (Auto) 0.10 0.00-0.70 K/uL Basophils # (Auto) 0.03 0.00-0.20 K/uL Absolute Immature Granulocyte (auto 0.04 0-1 K/uL Nucleated Red Blood Cells 0.0 0.0-0.19 % Chemistry Labs: Test 04/14/25 12:04 04/14/25 09:51 Range/Units Troponin I High Sensitivity < 4 L 4-50 ng/L Sodium Level 139 136-145 mmol/L Potassium Level 4.0 3.5-5.1 mmol/L Chloride Level 103 101-111 mmol/L Carbon Dioxide Level 28 21-32 mmol/L Blood Urea Nitrogen 29 H 7-18 mg/dL Creatinine 0.9 0.5-1.0 mg/dL Glomerular Filtration Rate Calc 67 >90 mL/min Random Glucose 116 H 70-105 mg/dL Total Calcium 10.4 H 8.5-10.1 mg/dL Total Bilirubin 0.7 0.2-1.0 mg/dL Direct Bilirubin 0.1 0.0-0.3 mg/dL Aspartate Amino Transf (AST/SGOT) 21 10-37 U/L Alanine Aminotransferase (ALT/SGPT) 37 12-78 U/L Alkaline Phosphatase 75 50-136 U/L B-Type Natriuretic Peptide 93 0-100 pg/mL Total Protein 8.0 6.0-8.3 g/dL Albumin 4.3 3.5-5.0 g/dL Coagulation Labs: Test 04/14/25 09:51 Range/Units Prothrombin Time 10.6 9.6-11.6 SEC Prothromb Time International Ratio 1.00 0.85-1.15 Activated Partial Thromboplast Time 26.5 26.3-35.5 SEC Diagnostics / Radiology: CXR IMPRESSION: No acute cardiopulmonary pathology is evident. /Umpire DICTATED BY: URIEL SWAIN Jr., MD DATE: 04/14/25 3291 Assessment: Chest pain, likely musculoskeletal First degree AVB Right bundle branch block Dyslipidemia Hypertension Venous insufficiency Plan: She has not felt relif with NTG patch and fentanyl. Will discontinue and place lidocaine patch as well as give IV toradol. Will send for Sed Rate and CRP in AM Will review echocardiogram result when available Obtain CCTA -- if benign, or no obstructive disease, then she can follow up with primary regarding control of MSK pain. Consider multimodal therapy to include physical therapy/OMT if available in outpatient setting. ROBIN TRUJILLO DO Apr 14, 2025 16:17
[2025-04-14 16:55] VITALS: O2SAT 97
[2025-04-14] MEDS: LIDOCAINE 4% ADH..PATCH TP ONE (16:59)
[2025-04-14 19:30] VITALS: BP 119/57; PULSE 76; RESP 18; TEMP 98.4
--- NOTE | 2025-04-14 20:09 | HMCSR ---
APPROVED REPORT EXAM: Two-dimensional and M-mode echocardiogram with Doppler and color Doppler. INDICATION ICD: Chest Pain 2D Dimensions RVDd 3.7 cm LVEF(%) 47.0 (>50%) LVED Vol(simp.) 109.0 mL IVSd 0.7 (0.7-1.1cm) FS(%) 23 % LVES Vol(simp.) 53.0 mL LVDd 4.5 (3.8-5.6cm) LA (2D) 3.4 (1.6-4.0cm) LVEF(%, simp.) 51 % PWd 0.8 (0.7-1.1cm) Ao Root(2D) 2.9 (2.0-3.7cm) LA ESV INDEX (BP) 23.34 mL/m2 LVDs 3.5 (2.5-4.0cm) LVOT diam 2.1 (1.8-2.4cm) IVC diam 0.9 cm Deformation Strain Apical 4 -20.1 % Apical 2 -14.2 % Apical 3 -16.7 % Global Strain -17.0 % M-Mode Dimensions EPSS 0.5 cm LA (MM) 3.4 (1.6-4.0cm) Ao Root(MM) 2.8 (2.0-3.7cm) Aortic Valve AoV Vmax 1.0 m/s Ao Peak GR 3.8 mmHg LVOT Vmax 0.9 m/s AoV VTI 0.2 m Ao Mean GR 2.2 mmHg LVOT VTI 0.22 m STEVEN (VMAX) 3.47 cm2 STEVEN (VTI) 3.6 cm2 Mitral Valve MV E Vmax 76.2 cm/s DECEL Time 255 ms MV A Vmax 68.3 cm/s P 1/2 T 45 ms E/A ratio 1.1 MVA (PHT) 4.9 cm2 TDI E/E' Medial 11.2 E/E' Lateral 10.8 Medial E' Peak V 6.80 cm/s Lateral E' Peak V 7.07 cm/s Pulmonary Valve PV Vmax 1.0 m/s PV VTI 0.22 m PV Mean GR 2.0 mmHg PV Peak GR 3.9 mmHg Left Ventricle The left ventricle is normal size. There is normal left ventricular wall thickness. LVEF is 50-55%. The left ventricular diastolic function is normal. Right Ventricle The right ventricle is normal size. The right ventricular systolic function is normal. Atria The left atrium size is normal. The right atrium size is normal. Aortic Valve The aortic valve is normal in structure. No aortic regurgitation is present. There is no aortic valvular stenosis. Mitral Valve Mitral valve leaflets are mildly calcified. There is no evidence of significant mitral regurgitation. There is no mitral valve stenosis. Tricuspid Valve The tricuspid valve is normal in structure. There is no tricuspid valve regurgitation noted. Pulmonic Valve The pulmonary valve is normal in structure. There is trivial pulmonic valvular regurgitation. Great Vessels The aortic root is normal in size. The IVC is normal in size and collapses >50% with inspiration. Pericardium There is no pericardial effusion. Other Information Quality : Good Rhythm : NSR Conclusion LVEF is 50-55%. There is normal left ventricular wall thickness. The left ventricular diastolic function is normal.
[2025-04-14 20:40] VITALS: O2SAT 95
[2025-04-14] MEDS: FAMOTIDINE 20MG VIAL IV SCH (21:00)
[2025-04-14] MEDS: EZETIMIBE 10 MG TAB PO SCH (21:47)
[2025-04-14 23:30] VITALS: BP 109/51; PULSE 70; RESP 18; TEMP 98.1
[2025-04-15 03:30] VITALS: BP 126/54; PULSE 62; RESP 18; TEMP 98
[2025-04-15 03:39] LABS: IMMATURE GRANULOCYTE ABSOLUTE 0.02 K/uL (0-1); NUCLEATED RED BLOOD CELLS 0.0 % (0.0-0.19); PLATELET COUNT (AUTO) 243 K/uL (130-400); RED BLOOD CELL COUNT(AUTO) 3.59 MIL/uL (4.00-5.50); RED CELL DISTRIBUTION WIDTH 12.3 % (11.0-15.5); WHITE BLOOD COUNT (AUTO) 6.8 K/uL (4.8-10.8)
[2025-04-15 03:54] LABS: CREATININE 1.0 mg/dL (0.5-1.0); ERYTHROCYTE SEDIMENTATION RATE 43 MM/HR (0-30); GLOMERULAR FILTR. RATE CALC 59.0 mL/min (>90); GLUCOSE,RANDOM 103.0 mg/dL (70-105); SODIUM SERUM 142.0 mmol/L (136-145); UREA NITROGEN, BLOOD 27.0 mg/dL (7-18)
[2025-04-15 07:30] VITALS: O2SAT 95
[2025-04-15 07:51] VITALS: BP 94/50; PULSE 64; RESP 16; TEMP 97.9
[2025-04-15 08:10] LABS: ASPARTATE AMINOTRANSFERASE 19.0 U/L (10-37); TOTAL PROTEIN, SERUM 6.9 g/dL (6.0-8.3)
[2025-04-15] MEDS: (Fenofibrate 160 MG) PO SCH (09:00)
[2025-04-15] MEDS ORDERED: IOHEXOL 350 MG/ML 100ML INFUS..BTL IV ONE (09:29)
[2025-04-15] MEDS: FISH OIL 1000 MG/CAP PO SCH (10:53)
[2025-04-15] MEDS: ASPIRIN 81MG CHEW TAB PO SCH (10:53)
[2025-04-15] MEDS: amLODIPine 5 MG TAB PO SCH (10:53)
[2025-04-15] MEDS: LIDOCAINE 4% ADH..PATCH TP SCH (11:03)
[2025-04-15 11:46] VITALS: BP 140/59; PULSE 64; RESP 16; TEMP 97.6
[2025-04-15] MEDS ORDERED: BACLOFEN 10 MG TABLET PO SCH ×2 (12:30→14:00)
--- NOTE | 2025-04-15 14:30 | PN ---
[facility] CARDIOLOGY PROGRESS NOTE Date Patient Seen: Apr 15, 2025 Time of Visit: 14:28 Problem List: chest pain Interval History: Chest pain improved after Toradol yesterday Pending CCTA results Hs troponins were negative Echocardiogram was benign Physical Examination: GENERAL: [No acute distress.] NECK: [ Normal carotid upstrokes without bruits.] LUNGS: [Clear breath sounds bilaterally. No wheezes, or rhonchi.] MSK: She has reproducible chest pain on direct palpation to the anterior chest, right lateral neck, and right posterior thorax, with difficulty ROM at the trunk. HEART: [Normal rate and rhythm. Normal S1 and S2 without murmurs, gallop or rub.] VASC: [Peripheral pulses +2 bilaterally.] EXT: [No cyanosis or edema.] SKIN: [No rashes or lesions noted.] NEURO: [Awake, alert, and oriented x3. ] Laboratory: [ ] Hematology Labs: Test 04/15/25 03:14 Range/Units White Blood Count 6.8 # 4.8-10.8 K/uL Red Blood Count 3.59 L 4.00-5.50 MIL/uL Hemoglobin 10.5 L 12.0-16.0 g/dL Hematocrit 32.1 L 36-48 % Mean Corpuscular Volume 89.4 79-99 fL Mean Corpuscular Hemoglobin 29.2 27.0-33.0 pg Mean Corpuscular Hemoglobin Concent 32.7 32.0-36.0 g/dL Red Cell Distribution Width 12.3 11.0-15.5 % Platelet Count 243 130-400 K/uL Mean Platelet Volume 9.3 7.5-10.5 fL Immature Granulocyte % (Auto) 0.3 0-1 % Neutrophils (%) (Auto) 52.5 40.0-77.0 % Lymphocytes (%) (Auto) 32.3 21.0-51.0 % Monocytes (%) (Auto) 10.7 3.0-13.0 % Eosinophils (%) (Auto) 3.9 0.0-8.0 % Basophils (%) (Auto) 0.3 0.0-5.0 % Neutrophils # (Auto) 3.6 1.8-7.7 K/uL Lymphocytes # (Auto) 2.2 1.0-4.8 K/uL Monocytes # (Auto) 0.7 0.1-1.0 K/uL Eosinophils # (Auto) 0.26 0.00-0.70 K/uL Basophils # (Auto) 0.02 0.00-0.20 K/uL Absolute Immature Granulocyte (auto 0.02 0-1 K/uL Nucleated Red Blood Cells 0.0 0.0-0.19 % Erythrocyte Sedimentation Rate 43 H 0-30 MM/HR Chemistry Labs: Test 04/15/25 09:51 04/15/25 03:14 04/14/25 12:04 04/14/25 09:51 Range/Units Procalcitonin < 0.05 L 0.05-0.5 ng/mL Sodium Level 142 136-145 mmol/L Potassium Level 4.4 3.5-5.1 mmol/L Chloride Level 107 101-111 mmol/L Carbon Dioxide Level 25 21-32 mmol/L Blood Urea Nitrogen 27 H 7-18 mg/dL Creatinine 1.0 0.5-1.0 mg/dL Glomerular Filtration Rate Calc 59 >90 mL/min Random Glucose 103 70-105 mg/dL Total Calcium 9.7 8.5-10.1 mg/dL Total Bilirubin 0.4 # 0.2-1.0 mg/dL Direct Bilirubin 0.1 0.0-0.3 mg/dL Aspartate Amino Transf (AST/SGOT) 19 10-37 U/L Alanine Aminotransferase (ALT/SGPT) 41 12-78 U/L Alkaline Phosphatase 64 50-136 U/L C-Reactive Protein, Quantitative 189.40 H 0.5-3.0 mg/L Total Protein 6.9 6.0-8.3 g/dL Albumin 3.5 3.5-5.0 g/dL Troponin I High Sensitivity < 4 L 4-50 ng/L B-Type Natriuretic Peptide 93 0-100 pg/mL Coagulation Labs: Test 04/14/25 09:51 Range/Units Prothrombin Time 10.6 9.6-11.6 SEC Prothromb Time International Ratio 1.00 0.85-1.15 Activated Partial Thromboplast Time 26.5 26.3-35.5 SEC Impression and Plan: Chest pain, likely musculoskeletal First degree AVB Right bundle branch block Dyslipidemia Hypertension Venous insufficiency /// Chest pain likely musculoskeletal in nature. She did have improvement with Toradol IV. She did undergo coronary CT angiography today and we are awaiting results. If no proximal obstructive stenosis, she can be discharged. Plan discussed with patient as well as primary team resident physician. ROBIN TRUJILLO DO Apr 15, 2025 14:30
--- NOTE | 2025-04-15 14:57 | HMCIMG ---
EXAM: CT Cervical Spine Without IV contrast. CLINICAL HISTORY: neck pain TECHNIQUE: Axial computed tomography images of the cervical spine without intravenous contrast. Sagittal and coronal reformatted images were generated. COMPARISON: None provided. FINDINGS: ALIGNMENT: Bony alignment is anatomic. Mild increased lumbar lordosis Minimal anterolisthesis of the C4 vertebra over the C5 DEGENERATIVE CHANGES: No significant canal stenosis or neural foraminal narrowing evident. Facetal joint arthropathy at multiple levels. Mild degenerative changes in the spine. SOFT TISSUES: The prevertebral soft tissues are within normal limits. BONES: No acute fracture or aggressive appearing osseous lesion. IMPRESSION: 1. No acute cervical spine injury. /[place]tuck
[2025-04-15 15:37] VITALS: BP 133/61; PULSE 66; RESP 16; TEMP 97.9
--- NOTE | 2025-04-15 16:27 | DS ---
Discharge Summary Assessment/Plan: ASSESSMENT: Chest pain with concern for unstable angina POA Hypertension Hyperlipidemia History of peripheral vascular disease History of ischemic colitis status post hemicolectomy History of breast cancer History of mastectomy Mild hypertensive PLAN: - patient to be admitted to PCCU -in reference to chest pain. We will trend troponins q.6 hours to rule out ACS. Secondary to persistent pain we will request consultation with Cardiology. Start morphine for severe pain. c/w Aspirin daily. -obtain patient's home medications which will be reconciled once available -check TSH, hemoglobin A1c -obtain echocardiogram -further orders per hospitalization course. Advanced Care Planning Which of the following were discussed: Hospice care: Yes __ No _x_ Therapeutic options: Yes __ No __ Advance directives: Yes __ No __ Other discussions: Discussed with who?: patient (Patient, family or surrogates) Voluntary nature of this service was explained to the patient? Yes _x_ No __ Amount of time spent: 25 minutes Hollis Farmer MD Home Medications: Reported Medications Cranberry Extract (Cranberry) 500 Mg Tablet, 500 MG PO AD, TAB 04/14/25 Vit C/Zinc Citrate/Elderberry (Elderberry Immune Health Gummy) 45 Mg-3.75 Mg-50 Mg Tab.chew, 1 EACH PO DAILY, TAB.CHEW 04/14/25 [place]-3 Fatty Acids/Fish Oil ([place] 3 Fish Oil Softgel) 684 Mg-1,200 Mg Capsule.dr, 1 EACH PO DAILY, CAP 04/14/25 Montelukast Sodium (Montelukast Sodium) 10 Mg Tablet, 10 MG PO DAILY, TAB 04/14/25 Fluoxetine HCl (Fluoxetine HCl) 20 Mg Tablet, 20 MG PO DAILY, TAB 04/14/25 Fenofibrate (Fenofibrate) 160 Mg Tablet, 160 MG PO DAILY, TAB 04/14/25 Amlodipine Besylate (Amlodipine Besylate) 10 Mg Tablet, 10 MG PO DAILY for 30 Days, #30 TAB 0 Refills 04/14/25 Aspirin (ASPIRIN 81 MG ECTAB) 81 Mg Ectab, 81 MG PO HS, TAB.EC 07/13/24 Pregabalin (Pregabalin) 50 Mg Capsule, 50 MG PO TID, CAP 05/13/24 Levocetirizine Dihydrochloride (Levocetirizine Dihydrochloride) 5 Mg Tablet, 5 MG PO HS, TAB 04/19/24 Losartan Potassium (Losartan Potassium) 100 Mg Tablet, 100 MG PO DAILY, TAB 04/19/24 Donepezil HCl (Donepezil HCl) 10 Mg Tablet, 10 MG PO DAILY, TAB 04/19/24 Ezetimibe (Ezetimibe) 10 Mg Tablet, 10 MG PO HS, TAB 04/19/24 Discontinued Reported Medications Amlodipine Besylate (Amlodipine Besylate) 10 Mg Tablet, 10 MG PO HS for 30 Days, #30 TAB 0 Refills 04/19/24 NHI SMITH MD Apr 15, 2025 16:27
--- NOTE | 2025-04-15 19:29 | CARDIOLOGY ---
RAD REPORT: CORNARY CT ANGIO RADIOLOGY REPORT: CORONARY CT ANGIOGRAPHY DATE: Apr 15, 2025 QUALITY: Excellent CLINICAL HISTORY AND INDICATION: [ chest pain ] TECHNIQUE: After obtaining a preliminary literacy teacher image, contrast imaging performed on an [employer] [id number] scanner. A dedicated, limited window, coronary imaging protocol was used, with single breath-hold, retrospective ECG gating, and automated arrhythmia rejection. 100 cc of low osmolar contrast agent: Omnipaque 350 was delivered via a 18-gauge IV catheter in the right antecubital fossa, using a power injector and followed by 60 cc of normal saline bolus as a chaser. Collimated images were reformatted at 0.5 mm intervals, and sent to an offline independent workstation for interpretation, using 3D anatomic reconstructions: Curved multiplanar reconstructions, maximum intensity projections, and multiplanar imaging. No metoprolol was administered prior to scanning due to low baseline heart rate. No SL nitroglycerin was given. CORONARY ARTERY DESCRIPTIONS: The coronary arteries arise in normal position. Left main coronary artery: Normal caliber vessel that bifurcates into the LAD and LCx. No stenosis. Left anterior descending coronary artery: Normal caliber vessel and gives rise to diagonal and septal branches. There is mixed calcified and noncalcified plaque in the mid LAD with 20-30% stenosis. Left circumflex coronary artery: Normal caliber, nondominant and gives rise to two OM branches. No stenosis. Right coronary artery: Large, dominant vessel giving rise to the PL and PDA branches. No stenosis. CAD-RADs: 2, mild non-obstructive CAD. Thoracic Aorta: Normal diameter. Chantal Welsh MD Cardiovascular Disease [facility] CHANTAL WELSH MD Apr 15, 2025 19:29
== END 2025-04-15 17:40 | disposition home or self-care (01) ==
LOC: EDH 09:40 → EDHIP 11:40 → INTOOBSV 11:40 → UNDOADMOB 11:40 → EDHIP 15:28 → 2DH 15:28 → EDHIP 04-15 13:48
PROVIDERS: ADMIT Internal Medicine; ATTEND Internal Medicine
DX: I20.0 Unstable angina (principal); E78.00 Pure hypercholesterolemia, unspecified; I10 Essential (primary) hypertension; I44.0 Atrioventricular block, first degree; I87.2 Venous insufficiency (chronic) (peripheral); I45.10 Unspecified right bundle-branch block; I73.9 Peripheral vascular disease, unspecified; Z79.82 Long term (current) use of aspirin; Z85.3 Personal history of malignant neoplasm of breast; Z87.19 Personal history of other diseases of the digestive system; Z90.13 Acquired absence of bilateral breasts and nipples; Z90.49 Acquired absence of other specified parts of digestive tract; Z90.711 Acquired absence of uterus with remaining cervical stump; Z79.899 Other long term (current) drug therapy; Z98.890 Other specified postprocedural states
CPT/HCPCS: 96375 ×2; 83880 ×2; 96374; 99284; 80076 ×2; 84484 ×2; 80048 ×2; 85025 ×2; 85610; 85730; 36415 ×2; 71045; 93306; 93005; 96376; 85651; 86140; 72125; 75574; 84145; J3010; J2270 ×2; J1885; G0378 ×4; J1308; Q9967; 99285